=== PATIENT | female | born 1960 | race Caucasian/White ===

== ENCOUNTER → 2016-07-09 | Outpatient (CLI) | payer OTHER ==
[~2016-07-09] MED LIST: ALBUTEROL17 GM INH; ATIVAN PO; CIPRO PO; CYMBALTA PO; DARVOCET-N 1001 TAB PO; DOLOBID500 MG PO; FLEXERIL PO; LORTAB 7.5-5001 TAB PO; MEDROL PO; NEURONTIN PO; PRILOSEC PO; PROZAC PO; PYRIDIUM PO; SKELAXIN PO; ULTRAM PO; ZITHROMAX PO
--- NOTE | ~2016-07-09 | CT113 ---
[facility] A Service of [facility] RADIOLOGY TEXT RESULTS PATIENT: FABI CORONADO LOCATION: [facility] : 58 UNIT #: [id number] AGE: [address]: Lin Gallo MD SEX: F ORDER DR: [id number] [facility] [address]. [place], [place] [address] [id number] O MR#: [id number] Acc #: [id number] NAME: FABI CORONADO : 1960 SEX: F STUDY DATE/TIME: 07/09/2016 13:32 UNIT: [facility] ROOM: STUDY DESCRIPTION: CT Sinuses Wo Contrast Attending Physician: Lin Gallo M.D. Referring Physician: Lin Gallo M.D. Ordering Physician: Lin Gallo M.D. Primary Care Physician: Lin Gallo M.D. MEDICAL IMAGING REPORT This report is preliminary unless electronic signature is present EXAM Sinus CT, no contrast, 07/09/2016. PROCEDURE Axial unenhanced sinus CT with multiplanar reformats. COMPARISON STUDIES None CLINICAL HISTORY 8-year history of difficulty breathing through the nose and sinus pressure. TECHNIQUE This CT exam was performed with one or more of the following radiation dose reduction techniques: automatic exposure control, adjustment of mA and/or kV according to patient size, and iterative reconstruction. FINDINGS The frontal sinuses are normally pneumatized and there is mild bilateral anteroinferior frontal sinus mucosal thickening. There is scattered diffuse bilateral ethmoid mucosal thickening without bone erosion or destruction. The sphenoid chambers are normally pneumatized. There is probably slight right sphenoid chamber dominance and small are of mucosal thickening and/or tiny retention cysts in the posterolateral right sphenoid floor. The maxillary sinuses are normally pneumatized. The infundibula are patent though narrowed on the left by mucosal thickening and there is bilateral maxillary floor mucosal thickening. There is a left middle turbinate contra bullosa. The septum is near midline. The soft tissues are unremarkable. [facility] A Service of [facility] RADIOLOGY TEXT RESULTS PATIENT: FABI CORONADO LOCATION: [facility] : 58 UNIT #: [id number] AGE: [address]: Lin Gallo MD SEX: F ORDER DR: IMPRESSION Scattered areas of sinus mucosal thickening. No bone erosion or destruction or aggressive-appearing process. There are chronic-appearing changes at the anterior margin of the right maxillary sinus with even some slight associated bony thickening but again no bone erosion or destruction is seen. Dictated by... Placido Arevalo M.D. THIS IS AN ELECTRONICALLY VERIFIED REPORT Placido Arevalo M.D. at 07/10/2016 1:19 PM KARLENE/oscar TD: 07/09/2016 15:18 JOB #: [id number] MEDICAL IMAGING REPORT Page 1 of 1 COPY
== END | disposition home or self-care (01) ==
LOC: CCAT 06-21 10:00
DX: R22.0 Localized swelling, mass and lump, head (principal); J34.89 Other specified disorders of nose and nasal sinuses
CPT/HCPCS: 70486

== ENCOUNTER → 2016-07-10 | Outpatient (CLI) | payer OTHER ==
--- NOTE | ~2016-07-10 | CT138 ---
[facility] A Service of [facility] RADIOLOGY TEXT RESULTS PATIENT: FABI CORONADO LOCATION: [facility] : 58 UNIT #: [id number] AGE: [address]: Lin Gallo MD SEX: F ORDER DR: [id number] [place] [id number] [facility]. [place], [place] [address] [id number] O MR#: [id number] Acc #: [id number] NAME: FABI CORONADO : 1960 SEX: F STUDY DATE/TIME: 07/10/2016 13:47 UNIT: [facility] ROOM: STUDY DESCRIPTION: CT Lung screening initial Attending Physician: Lin Gallo M.D. Referring Physician: Lin Gallo M.D. Ordering Physician: Lin Gallo M.D. Primary Care Physician: Lin Gallo M.D. MEDICAL IMAGING REPORT This report is preliminary unless electronic signature is present EXAM CT chest without contrast lung cancer screening INDICATION 35 pack year total smoking history. Former smoker. Quit [address] of the chest was performed without contrast using the low dose lung cancer screening protocol. This CT examination was performed with one or more of the following radiation dose reduction techniques: automatic exposure control, adjustment of mA and/or kV according to patient size, and iterative reconstruction. Coronal and sagittal reformatted images were obtained. No comparisons. FINDINGS Left upper lobe micronodule on image 55 measuring about 3-4 mm. There is no lymphadenopathy or pleural effusion. Tiny hiatal hernia. Limited imaging of the upper abdomen is unremarkable. The bone windows are unremarkable. IMPRESSION Tiny micronodule left upper lobe. ACR Lung-RADS category 2. Follow up annual low dose lung cancer screening chest CT in 1 year. Dictated by... Lambert Santiago M.D. THIS IS AN ELECTRONICALLY VERIFIED REPORT Lambert Santiago M.D. at 07/11/2016 9:11 AM [facility] A Service of [facility] RADIOLOGY TEXT RESULTS PATIENT: FABI CORONADO LOCATION: [facility] : 58 UNIT #: [id number] AGE: [address]: Lin Gallo MD SEX: F ORDER DR: ZAY/chrissie TD: 07/10/2016 14:24 JOB #: [id number] MEDICAL IMAGING REPORT Page 1 of 1 COPY
== END | disposition home or self-care (01) ==
LOC: CCAT 07-08 15:30
DX: Z87.891 Personal history of nicotine dependence (principal)
CPT/HCPCS: G0297

== ENCOUNTER → 2016-08-06 | Outpatient (CLI) | payer OTHER ==
--- NOTE | ~2016-08-06 | TH ---
Unit #: [id number] #: [id number] Patient: FABI CORONADO [id number] [address] [id number] O MR#: [id number] NAME: FABI CORONADO : 1960 SEX: F STUDY DATE/TIME: 08/06/2016 UNIT: [facility] ROOM: STUDY DESCRIPTION: Lexiscan stress test - Nuclear Attending Physician: Lin Gallo M.D. Referring Physician: Lin Gallo M.D. Primary Care Physician: Lin Gallo M.D. CARDIOLOGY REPORT PROCEDURE PERFORMED Lexiscan Cardiolite stress test - Nuclear portion. PROCEDURE Using technetium 99m-labeled Cardiolite, rest and stress SPECT images were obtained. Multiple SPECT images were obtained in various views, including horizontal and vertical long axis and short axis views of the left ventricle. Images were obtained by gated SPECT method. The patient was administered 10.33 mCi of Cardiolite at rest. The patient was administered 33.8 mCi of Cardiolite after Lexiscan infusion was completed. On the stress images, there is a small area of mildly decreased tracer uptake activity in the anteroapical wall. The rest images show normal perfusion. Comparing the rest and stress images, there is suspicion for a small area of stress-induced ischemia involving the anteroapical wall. The left ventricular ejection fraction is calculated to be 72%. There is no focal wall motion abnormality seen. CONCLUSION 1. There is suspicion for a small area of possible stress-induced ischemia involving the anteroapical wall of the left ventricle. 2. The left ventricular ejection fraction is calculated to be 72%. 3. There is no focal wall motion abnormality seen. 4. Mildly abnormal Lexiscan Cardiolite stress test. 5. Technically limited study due to the patient's body habitus. Clinical correlation is requested. Dictated by.Miko Gomez TD: 08/06/2016 16:07 JOB #: [id number] Unit #: [id number] #: [id number] Patient: FABI CORONADO CARDIOLOGY REPORT Page 1 of 1 X Emily Jacobs MD <ELECTRONICALLY SIGNED> 09/14/16 1429 CARDIOLOGY REPORT
--- NOTE | ~2016-08-06 | ST ---
Unit #: [id number] #: [id number] Patient: FABI CORONADO [id number] [facility]. [facility] [address]. [place], [place] [address] [id number] O MR#: [id number] NAME: FABI CORONADO : 1960 SEX: F STUDY DATE/TIME: 08/06/2016 UNIT: [facility] ROOM: STUDY DESCRIPTION: Cardiac stress test. Attending Physician: Lin Gallo M.D. Referring Physician: Lin Gallo M.D. Primary Care Physician: Lin Gallo M.D. CARDIOLOGY REPORT EXAM Lexiscan Cardiolite stress test. PROCEDURE Baseline EKG sinus bradycardia, heart rate 52 beats per minute, slow R wave progression, low voltage in lead 3 and also in V1, slightly prolonged QT. Lexiscan is a 4 minute test with Lexiscan being injected within the first minute, followed by Cardiolite. EKG during the test was equivocal to baseline. No acute ischemic changes. The patient had no complaints of chest pain, palpitations or dizziness. She had increased shortness of breath and fatigue which resolved in the recovery phase. Maximum heart rate response was 78 beats per minute with maximum blood pressure response 132/74 mmHg. Cardiolite was injected after Lexiscan, within the first minute of the test. Radionuclide test pending. Please correlate with nuclear images. Dictated by... Marlyn Welch A.P.R.N. for Emily Jacobs M.D. CEC/cristina TD: 08/06/2016 09:19 JOB #: [id number] CC: Lin Gallo M.D. [facility] [place] [facility] CARDIOLOGY REPORT Page 1 of 1 X Marlyn Welch APRN CARDIOLOGY REPORT
== END | disposition home or self-care (01) ==
LOC: CNUC 07-16 06:30
DX: R07.9 Chest pain, unspecified (principal); R94.39 Abnormal result of other cardiovascular function study
CPT/HCPCS: 78452; 93017; A9500; J2785